=== PATIENT | male | born 1965 | race African-American/Black ===

== ENCOUNTER 2018-01-08 17:49 | Emergency (ER) | payer BC ==
[~2018-01-08] VITALS: Ht 175.3 cm; Wt 102.1 kg
[2018-01-08] MEDS ORDERED: FLEXERIL PO (19:44)
== END 2018-01-08 20:05 | disposition home or self-care (01) ==
LOC: ER 17:49
DX: M54.6 Pain in thoracic spine (principal); V89.0XXA Person injured in unspecified motor-vehicle accident, nontraffic, initial encounter; Y93.89 Activity, other specified; Y92.89 Other specified places as the place of occurrence of the external cause; Y99.8 Other external cause status